=== PATIENT | male | born 1980 ===

== ENCOUNTER → 2022-01-09 | Outpatient (CLI) | payer BC ==
[~2022-01-09] MED LIST: DEXAMETHASONE PRES.FREE 10 MG/ML VIAL. ONE; IOHEXOL 180 MG/ML 10 ML VIAL. ONE
--- NOTE | 2022-01-09 15:53 | PDOC1 ---
INITIAL PAIN CONSULT DATE OF SERVICE: DOS: DATE: 01/09/22 TIME: 15:40 CHIEF COMPLAINT: Chief Complaint: Low back and bilateral lower extremity pain HISTORY OF PRESENT ILLNESS: 41-year-old male presents history of pain in the low back and bilateral lower extremities starting 2005 when he was lifting weights with some significant pain in the back itself with radiating pain to the lower extremities patient reports its been on and off in intensity over the years she is done physical therapy as well as chiropractic treatments all with temporary decrease in pain but the pain now is becoming much more noticeable over the past year or so patient reports constant sharp shooting across the low back into the lower extremities bilaterally mostly in the posterior lateral aspect of the thighs and can go all the way into the calves and feet patient reports but this is mostly with bending and stooping bending forward he has pain across the low back as well but the radiating pain which is intermittent in the lower extremities is significant and much more severe. Patient reports no loss of motor function but significant fatigability of the lower extremities but no deficits. Patient reports disability rating 0-10 10 being the worst is a 2 with family home responsibilities and social activity 3 with recreation and self-care activities 1 with life support activities patient reports it wakes him from sleep occasion but not every night reports does not affect his bowel bladder control or his ability to walk significantly but he has much more fatigue when he is on his feet walking and standing. PAST MEDICAL HISTORY: PMH: Arthritis PREVIOUS SURGERIES: Past Surgical Hx: Right ACL repair 2002 CURRENT MEDICATIONS: Current Meds: Active Scripts Medications Dose Route/Sig Max Daily Dose Days Date Category No Known Medications Prior To Admisstion (Info) Each 1 Each 1-2XD 01/09/22 Reported ALLERGIES; Allergies: Coded Allergies: No Known Drug Allergies (Unverified , 01/09/22) FAMILY HISTORY: Family Hx: No major medical problems or conditions that he is aware of. 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 PHYSICAL EXAM: VS: Blood pressure is 134/95 pulse 78 respirations 18 temperature is 98.0 F height is 6 foot 4 inches weight is 228 pounds. PE: PHYSICAL EXAMINATION: GENERAL: The patient is awake, alert, oriented, appropriate, very pleasant in demeanor HEENT: Shows normocephalic, atraumatic. Extraocular movements are intact and symmetrical. Oral cavity: Mucous membranes moist and pink. Dentition is intact. NECK: Shows anterior throat supple without palpable lymphadenopathy noted. Swallow reflex symmetrical. CHEST: Shows normal on inspection. Breath sounds are clear bilaterally, no rales rhonchi or wheezes auscultated. HEART: Shows S1, S2 clear. No murmurs auscultated. ABDOMEN: Soft, nontender, nondistended. No palpable organomegaly is noted. BACK: Shows spine grossly in the midline. Normal-appearing cervical lordotic curvature. There is slightly increased thoracic kyphosis, some minor flattening of the lumbar lordotic curvature. Lumbar paraspinous muscles show symmetrical on inspection, on palpation shows some moderate tenderness diffusely throughout the upper, middle and lower distribution of the paraspinous muscles bilaterally and also into the lower thoracic paraspinous musculature, firm and tender, but without specific trigger points, without radiation of pain. The patient has good rotational motion of the lumbar spine, both laterally as well as extension and flexion without significant difficulty. No tenderness over the spinous processes, sacrum or sacroiliac regions. EXTREMITIES: Lower extremities show deep tendon reflexes 2+ in the patellar and tendo calcaneus tendons. Motor exam is 5 on a scale of 5 with right dorsiflexion, extension, quadriceps and hamstring flexion and 5/5 on the left. Peripheral pulses are 2+ posterior tibial. No peripheral edema is noted bilaterally. Lower extremities are warm and dry to touch, equal in color and appearance. Straight leg raise noted to be negative bilaterally. Gaenslen's and Edouard's maneuvers are negative bilaterally as well. The patient is able to stand, stand on his toes without significant difficulty or loss of balance, walks with a normal-appearing gait is not appear to favor the right left lower extremity significantly. SKIN: Shows warm and dry, good turgor. No edema. No sores, rashes or bruising throughout. IMPRESSION: Impression: 41-year-old male with long history of low back and bilateral lower extremity pain intermittently with radicular qualities. History of arthritis MRI scan showing compression and degenerative changes at L4-5 as well as L5-S1 Plan: Options were discussed with the patient clued exert medical managements continued physical therapies interventional techniques. Patient would like to proceed with techniques. We discussed a lumbar epidural steroid injections description as well as anatomical models to describe the procedure. Risks were discussed including but not limited to: Bleeding, infection, possibility of epidural hematoma and subsequent neurological compromise, dural puncture, headaches, spinal cord and/or nerve damage, side effects of steroid medication, and poor results regarding pain control. Patient understands and wished to proceed. Patient will return to clinic in approximately 2 weeks for follow-up, was counseled as to return appointment, active level, and side effect to be aware of. Procedure is lumbar epidural steroid injection under local anesthetic using sterile prep and drape at the L4-5 level using C-arm fluoroscopic guidance in both AP and lateral views medications injected is 20 mg dexamethasone +10mL preservative-free normal saline and 2 mL contrast- condition at discharge is stable patient tolerated procedure well had no complications. JEY SCHAFER MD January 09, 2022 15:53
--- NOTE | 2022-01-09 15:54 | PDOC4 ---
Procedure Note: ICD 10 Code: ICD 10 Code: M54.16 M51.36 M48.06 Procedure Note: Patient was consented for lumbar epidural steroid injection with fluoroscopic guidance. Risks were discussed including but not limited to: Bleeding, infection, possibility of epidural hematoma and subsequent neurological compromise, dural puncture, headaches, spinal cord and/or nerve damage, side effects of steroid medication, and poor results regarding pain control. Patient understands and wished to proceed. Procedure is lumbar epidural steroid injection under local anesthetic using ster ile prep and drape at the L4-5 level using C-arm fluoroscopic guidance in both AP and lateral views medications injected is 20 mg dexamethasone +10mL preservative-free normal saline and 2 mL contrast- condition at discharge is stable patient tolerated procedure well had no complications. JEY SCHAFER MD January 09, 2022 15:54
== END | disposition home or self-care (01) ==
LOC: PNCL 12:56
PROVIDERS: ATTEND Anesthesiology
DX: M54.50 Low back pain, unspecified (principal); M79.605 Pain in left leg; M79.604 Pain in right leg; M19.90 Unspecified osteoarthritis, unspecified site; M51.16 Intervertebral disc disorders with radiculopathy, lumbar region; Z79.899 Other long term (current) drug therapy; Z98.890 Other specified postprocedural states
CPT/HCPCS: 62323; G0463; J1100; Q9965